=== PATIENT | female | born 1980 | race Caucasian/White ===

== ENCOUNTER 2020-08-12 11:45 | Outpatient (REF) | payer MEDICAID, SELFPAY ==
[2020-08-12 19:08] LABS: Calculated LDL 112 mg/dL (<100); Cholesterol 184 mg/dL (<200); Glucose 91 mg/dL (74-106); HDL Cholesterol 53 mg/dL (40-60); TSH (W/Ref FT4) 8.57 uIU/mL (0.36-3.74); Triglyceride 95 mg/dL (<150)
== END 2020-08-12 12:05 ==
LOC: NCHCN 11:45
PROVIDERS: Visit Provider Nurse Practitioner
DX: F41.9 Anxiety disorder, unspecified (principal); Z13.1 Encounter for screening for diabetes mellitus; Z13.220 Encounter for screening for lipoid disorders
CPT/HCPCS: 80061; 82947; 84439; 84443

== ENCOUNTER 2020-09-13 15:02 | Outpatient (REF) | payer MEDICAID, SELFPAY ==
--- NOTE | 2020-09-13 14:15 | PAPFT_PTH ---
PATIENT: Carmen Cloud LOC: [facility]#:[id number] AGE/SX: 40/F ROOM: RE09/13/[address]: Argentina Dennis : 1980 BED: DIS: 09/13/2020 SPEC #: [id number] RECD: 09/14/20 12:44 STATUS: ISIAH REQ #: [id number] SARITA: 09/13/20 14:[address]: Argentina Dennis DEPT: [facility] Cytology RECD BY: Amalia Castillo ENTERED: 09/14/20 12:44 SP TYPE: PAPFT OT DR: None Tissues: 1 - CX/ENDOCX FOR PAP SMEARS Procedures: PAP THIN PREP/[facility] Screening HPV DNA PROBE Comments: [id number] (PH#)
[2020-09-13 19:52] LABS: TSH (W/Ref FT4) 9.25 uIU/mL (0.36-3.74)
[2020-09-13 20:11] LABS: FREE T4 0.65 ng/dL (0.76-1.46)
== END 2020-09-13 15:22 ==
LOC: NCHCN 15:02
PROVIDERS: Visit Provider Nurse Practitioner
DX: R94.6 Abnormal results of thyroid function studies (principal); Z00.00 Encounter for general adult medical examination without abnormal findings; Z12.4 Encounter for screening for malignant neoplasm of cervix; Z11.51 Encounter for screening for human papillomavirus (HPV)
CPT/HCPCS: 88142; 84439; 84443; 87624

== ENCOUNTER 2020-11-10 16:41 | Outpatient (REF) | payer MEDICAID, SELFPAY ==
[2020-11-10 13:45] LABS: TSH 7.87 uIU/mL (0.36-3.74)
== END 2020-11-10 17:01 ==
LOC: NCHCN 16:41
PROVIDERS: PCP Physician Assistant; Visit Provider Physician Assistant
DX: E03.9 Hypothyroidism, unspecified (principal)
CPT/HCPCS: 84443

== ENCOUNTER 2021-01-13 11:56 | Outpatient (REF) | payer MEDICAID, SELFPAY ==
[2021-01-13 16:55] LABS: TSH 8.09 uIU/mL (0.36-3.74)
== END 2021-01-13 11:57 | disposition home or self-care (01) ==
LOC: NCHCN 11:56
PROVIDERS: PCP Physician Assistant; Visit Provider Physician Assistant
DX: E03.9 Hypothyroidism, unspecified (principal)
CPT/HCPCS: 84443

== ENCOUNTER 2021-04-20 18:41 | Outpatient (REF) | payer MEDICAID, SELFPAY ==
[2021-04-20 20:23] LABS: Bilirubin Small (Negative); Blood Small (Negative); Clarity Cloudy (Clear); Glucose Negative (Negative); Ketones Trace mg/dL (Negative); Leukocyte Esterase Negative (Negative); Nitrite Negative (Negative); Specific Gravity >= 1.030 (1.005-1.025); Urobilinogen 0.2 EU/dL (Up TO 0.2); pH 5.5 (5-8)
[2021-04-20 20:49] LABS: RBC Negative HPF (0-2); WBC Negative HPF (0-5)
[2021-04-20 20:50] LABS: Bacteria Negative HPF (Negative); C & S Indicated? No; Casts Negative LPF (Negative); Crystals Many Amorphous HPF (Negative); Epithelial Cells Negative HPF (Negative); Mucus Negative (Negative)
== END 2021-04-20 18:42 | disposition home or self-care (01) ==
LOC: NCHCN 18:41
PROVIDERS: PCP Physician Assistant; Visit Provider Physician Assistant
DX: R30.0 Dysuria (principal)
CPT/HCPCS: 81003; 81015

== ENCOUNTER 2021-05-13 15:06 | Outpatient (REF) | payer MEDICAID, SELFPAY | END 2021-05-13 15:07 | disposition home or self-care (01) | LOC: LBN 15:06 | PROVIDERS: PCP Physician Assistant; Visit Provider Physician Assistant Medical | DX: R30.0 Dysuria (principal) | CPT/HCPCS: 87086 ==

== ENCOUNTER 2021-10-25 20:09 | Outpatient (REF) | payer MEDICAID, SELFPAY ==
[2021-10-25 21:53] LABS: FREE T4 0.82 ng/dL (0.76-1.46); TSH 2.57 uIU/mL (0.36-3.74)
== END 2021-10-25 20:10 | disposition home or self-care (01) ==
LOC: NCHCN 20:09
PROVIDERS: PCP Physician Assistant; Visit Provider Physician Assistant
DX: E03.9 Hypothyroidism, unspecified (principal)
CPT/HCPCS: 84439; 84443

== ENCOUNTER 2023-02-19 19:13 | Outpatient (REF) | payer MEDICAID, SELFPAY ==
[2023-02-19 20:15] LABS: TSH 2.76 uIU/mL (0.36-3.74)
== END 2023-02-19 19:14 | disposition home or self-care (01) ==
LOC: NCHCN 19:13
PROVIDERS: PCP Physician Assistant; Visit Provider Physician Assistant
DX: E03.9 Hypothyroidism, unspecified (principal)
CPT/HCPCS: 84443

== ENCOUNTER 2024-02-13 14:42 | Outpatient (REF) | payer MEDICAID, SELFPAY ==
[2024-02-13 16:34] LABS: TSH 3.11 uIU/Ml (0.36-3.74)
== END 2024-02-13 14:43 | disposition home or self-care (01) ==
LOC: NCHCN 14:42
PROVIDERS: PCP Physician Assistant; Visit Provider Physician Assistant
DX: E03.9 Hypothyroidism, unspecified (principal)
CPT/HCPCS: 84443

== ENCOUNTER 2025-01-20 16:00 | Outpatient (REF) | payer OTHER, MEDICAID, SELFPAY ==
[2025-01-20 20:25] LABS: HCT 41.9 % (36.0-46.0); HGB 13.6 g/dL (11.2-15.7); MCH 29.2 pg (27.0-33.0); MCHC 32.5 % (32.0-36.0); MCV 90 fL (80-95); Platelet Count 305 10^3/uL (130-400); RBC 4.66 10^6/uL (3.93-5.22); RDW 12.8 % (11.7-14.6); RDW-SD 42.1 fL; WBC 6.92 10^3/uL (4.4-10.8)
[2025-01-20 20:58] LABS: ALT 19 U/L (14-59); AST 14 U/L (15-37); Albumin 4.3 g/dL (3.4-5.0); Alkaline Phosphatase 80 U/L (46-116); Anion Gap 13.6 mmol/L (3-11); BUN 11 mg/dL (7-18); Bilirubin, Total 0.4 mg/dL (0.2-1.0); CO2 22.4 mmol/L (21.0-32.0); CREATININE 0.9 mg/dL (0.55-1.02); Calcium 9.2 mg/dL (8.5-10.1); Chloride 103 mmol/L (98-107); Estimated GFR 80.34 (mL/min/1.73m2); Glucose 90 mg/dL (74-106); Potassium 4.1 mmol/L (3.5-5.1); Sodium 139 mmol/L (136-145); TSH 8.33 uIU/mL (0.36-3.74); Total Protein 7.7 g/dL (6.4-8.2)
== END 2025-01-20 16:01 | disposition home or self-care (01) ==
LOC: NCHCN 16:00
PROVIDERS: PCP Physician Assistant; Visit Provider Physician Assistant
DX: K21.9 Gastro-esophageal reflux disease without esophagitis (principal); E03.9 Hypothyroidism, unspecified
CPT/HCPCS: 80053; 85027; 84443

== ENCOUNTER 2025-05-11 02:57 | Outpatient (CLI) | payer OTHER, SELFPAY ==
--- NOTE | 2025-05-11 | DI.MAMMO_ITS ---
Exam(s) MAMMO SCREENING EXAM: MAMMO SCREENING CLINICAL HISTORY: Screening, Z12.31. TECHNIQUE: Bilateral full field digital CC and MLO mammographic images were obtained with 3D tomosynthesis and utilizing computer aided detection (CAD). COMPARISON: No priors for comparison. FINDINGS: There are no CAD designations. There are no right breast findings. In the left breast on the MLO view there is an oval nodular density noted located 4 cm in from the nipple on the MLO view and measuring approximately 6 x 4 mm. On the CC view there is a benign-appearing nodular density which has appearance of probable benign lymph node slightly lateral center same distance from the nipple. There are no malignant-appearing microcalcification groups in this region or elsewhere in either breast There is no significant architectural distortion nor skin thickening-retraction. IMPRESSION: 1. No radiographic evidence of malignancy in the right breast. 2. Small 6 x 4 mm nodule in the left breast as described above. Spot compression view and breast ultrasound recommended for further evaluation.. BI-RADS Category 0 - Incomplete: Need additional imaging evaluation Breast Density - Category B - There are scattered areas of fibroglandular density. Breast density Category C or D implies that the patient has dense breast tissue. Dense breast tissue can make it harder to find cancer on a mammogram. Dense breast tissue is also associated with an increased risk of breast cancer. This information about the result of the mammogram report was provided to the patient to raise their awareness. Use this report when you speak with the patient about their risks for breast cancer, which includes their family history. At that time, you may recommend additional screening tests (Ultrasound or MRI) as these tests may add significant information. A negative radiographic report should not delay biopsy if a dominant or clinically suspicious mass is present. Up to ten percent of cancers are not identified on mammography. A negative report may reinforce clinical impression. Adenosis and dense breasts may obscure an underlying neoplasm. False positive reports average 6 to 10%. Patient will receive a letter notifying them of these results.
== END 2025-05-11 03:17 ==
LOC: DI 02:58
PROVIDERS: PCP Physician Assistant; Visit Provider Physician Assistant
DX: Z12.31 Encounter for screening mammogram for malignant neoplasm of breast (principal); R92.323 Mammographic fibroglandular density, bilateral breasts
CPT/HCPCS: 77063; 77067

== ENCOUNTER 2025-07-21 07:41 | Outpatient (CLI) | payer OTHER, SELFPAY ==
--- NOTE | 2025-07-21 | DI.MAMMO_ITS ---
Exam(s) MG MAMMO SCREEN CALL BACK UNI US BREAST LT COMPLETE EXAM: MG MAMMO SCREEN CALL BACK UNI and U/S breast LT complete CLINICAL HISTORY: 6X4 OVAL NODULAR DENSITY LT BREAST 4CM FROM NIPPLE R92.8 ABNL MAMMO. TECHNIQUE: Craniocaudal and mediolateral oblique Full Field Digital Mammography views of the left breast with Computer Aided Diagnosis followed by Tomosynthesis and complete left breast ultrasound. All 4 quadrants of the left breast were evaluated in addition to the retroareolar region and left axilla. COMPARISON: Comparison is made with prior examinations. FINDINGS: Mammography/Tomosynthesis: Masses/Architectural Distortion: There is again seen a well-circumscribed ovoid nodule just lateral of midline 4 cm from the nipple on the additional craniocaudad view. Microcalcifictions: No suspicious pleomorphic-type are seen. Skin Thickening/Nipple Retraction: None. Complete left breast US: Echotexture: Normal appearance of the glandular tissue. Shadowing: No suspicious foci. Cyst: There is an anechoic 4 x 2 x 4 mm cyst at the 3 o'clock position of the left breast 4 cm from the nipple. This would correspond to the mammographic abnormality. Solid lesions: None seen. Ductal dilation: None. IMPRESSION: 1. No evidence of malignancy is noted. 2. Unless there is more urgent need, follow-up screening mammography is recommended, as per [place] [employer] guidelines. 3. The findings were discussed with the patient on the date of the examination. BI-RADS Category 2 - Benign Findings Breast Density - Category B - There are scattered areas of fibroglandular density. Breast density Category C or D implies that the patient has dense breast tissue. Dense breast tissue can make it harder to find cancer on a mammogram. Dense breast tissue is also associated with an increased risk of breast cancer. This information about the result of the mammogram report was provided to the patient to raise their awareness. Use this report when you speak with the patient about their risks for breast cancer, which includes their family history. At that time, you may recommend additional screening tests (Ultrasound or MRI) as these tests may add significant information. A negative radiographic report should not delay biopsy if a dominant or clinically suspicious mass is present. Up to ten percent of cancers are not identified on mammography. A negative report may reinforce clinical impression. Adenosis and dense breasts may obscure an underlying neoplasm. False positive reports average 6 to 10%. Patient will receive a letter notifying them of these results.
== END 2025-07-21 08:01 ==
LOC: DI 07:41
PROVIDERS: PCP Physician Assistant; Visit Provider Physician Assistant
DX: Z12.31 Encounter for screening mammogram for malignant neoplasm of breast (principal); R92.8 Other abnormal and inconclusive findings on diagnostic imaging of breast
CPT/HCPCS: 76642; 77063; 77067

== ENCOUNTER 2025-09-24 18:24 | Outpatient (REF) | payer OTHER, SELFPAY ==
[2025-09-24 19:42] LABS: TSH 0.45 uIU/mL (0.55-4.78)
== END 2025-09-24 18:25 | disposition home or self-care (01) ==
LOC: NCHCN 18:24
PROVIDERS: PCP Physician Assistant; Visit Provider Physician Assistant
DX: E03.9 Hypothyroidism, unspecified (principal)
CPT/HCPCS: 84443